=== PATIENT | female | born 1955 | race Caucasian/White ===

== ENCOUNTER 2017-05-21 14:20 | Observation (INO) | payer OTHER ==
--- NOTE | 2017-05-21 14:34 | CPEKG ---
Heart Rate: 98 RR Interval: 612 P-R Interval: 168 QRSD Interval: 88 QT Interval: 352 QTC Interval: 450 P [place]: 64 QRS [place]: 61 T Wave [place]: 26 EKG Severity - BORDERLINE ECG - EKG Impression: SINUS RHYTHM EKG Impression: BORDERLINE T ABNORMALITIES, ANTERIOR LEADS Electronically Signed By: Tino Arana 21-May-2017 22:31:32
--- NOTE | 2017-05-21 14:34 | CPEKG ---
Heart Rate: 98 RR Interval: 612 P-R Interval: 168 QRSD Interval: 88 QT Interval: 352 QTC Interval: 450 P [place]: 64 QRS [place]: 61 T Wave [place]: 26 EKG Severity - BORDERLINE ECG - EKG Impression: SINUS RHYTHM EKG Impression: BORDERLINE T ABNORMALITIES, ANTERIOR LEADS Electronically Signed By: Tino Arana 21-May-2017 22:31:32
[2017-05-21] MEDS ORDERED: ASPIRIN 81 MG CHEWABLE TAB PO ONE (14:44)
[2017-05-21 14:51] LABS: PLATELET COUNT 228 10^3/uL (150-400)
[2017-05-21] MEDS ORDERED: NITROGLYCERIN 0.4 MG BTL SL ONE (15:14)
[2017-05-21] MEDS ORDERED: NS 1,000 ML IV ONE (15:15)
[2017-05-21] MEDS ORDERED: NITROGLYCERIN 2% 1 GM PACKET TP ONE (15:49)
--- NOTE | 2017-05-21 15:53 | EDPHY ---
H & P Stated Complaint: c/o Lt chest pain Rad to neck since Sat Time Seen by Provider: 05/21/17 15:01 HPI/ROS: This patient lifted a heavy box of fabric on Sunday, 2 days prior to arrival and then developed some left-sided chest pain that she described as initially achy with partial improvement from Advil but last night, Sunday night she will significant increase in the severity of the pain up to a 10/10 for a brief period of time and then persistent steady ache since that time in the left chest radiating to the left lateral neck. She describes this pain as improving slightly when she lies down left side. She is uncertain if it worsens with exertion but she has not noticed any obvious correlation. She does notice is a pleuritic component that worsens with a deep breath. A current intensity is 6/ 10. She has not had this pain before. She reports that it "feels like a muscle tear ". She has not had this pain before. ROS: Constitutional: No fevers or chills. No fatigue. HEENT: No coryza or sore throat. No other complaints Pulmonary: No coughing. No dyspnea. Cardiovascular: She reports no heart palpitations. No lightheadedness. No leg swelling or pain GI: No nausea vomiting or abdominal pain. In the past she has had occasional GERD symptoms but nothing recently other than belching moderately. Integumentary: No skin rash Neuro: No complaints Musculoskeletal: No injuries that she can think of Complete review of symptoms is otherwise negative. Source: Patient Exam Limitations: No limitations - Personal History Current Tetanus Diphtheria and Acellular Pertussis (TDAP): Yes - Medical/Surgical History PMH: Otherwise healthy Family history of mother with coronary artery bypass in her 60s Other PMH: ta - Family History Significant Family History: Heart disease - Social History Smoking Status: Never smoked Alcohol Use: Other (She has a glass a wine most nights with dinner.) Drug Use: None - Physical Exam Exam: General Appearance: Alert, no distress. Eyes: Pupils equal and round no pallor or injection. ENT, Mouth: Mucous membranes moist. Respiratory: There are no retractions, lungs are clear to auscultation. Cardiovascular: Regular rate and rhythm. Gastrointestinal: Abdomen is soft and nontender, no masses, bowel sounds normal. Neurological: [ ] Skin: Warm and dry, no rashes. Musculoskeletal: Neck is supple nontender. Extremities are symmetrical, full range of motion. Psychiatric: Patient is oriented X 3, there is no agitation. DIFFERENTIAL DIAGNOSIS: After history and physical exam differential diagnosis was considered for [ ] Constitutional: Initial Vital Signs Temperature (C) 36.6 C 05/21/17 14:26 Heart Rate 95 05/21/17 14:26 Respiratory Rate 18 05/21/17 14:26 Blood Pressure 181/95 H 05/21/17 14:26 O2 Sat (%) 94 05/21/17 14:26 O2 Delivery Mode Room Air Allergies/Adverse Reactions: No Known Allergies Allergy (Unverified 05/21/17 14:26) Home Medications: Medication Instructions Recorded NK [No Known Home Meds] 05/21/17 Medical Decision Making - Diagnostics EKG Interpretation: EKG performed at 2:32 p.m. indication chest pain 12 lead EKG sinus rhythm at 98 Intervals: Normal throughout [place]: P of 64, QRS of 61, T of 26 ST segments are notable for [address] elevation isolated to V1 with [address] depression in lateral leads V4 through V6. Overall assessment sinus rhythm with T-wave abnormalities in anterolateral leads. No previous EKG for comparison. Imaging Results: Imaging Impressions Chest X-Ray 05/21/17 14:52 Impression: 1. Bronchitis/airways disease. 2. Linear scarring or atelectasis in the left lower lobe. 3. No definite pneumonia. Findings and recommendations discussed with Emergency Department physician, Dr. Tino Arana, at 1533 hours on May 21, 2017. Final report concurs with initial preliminary interpretation. Imaging: Discussed imaging studies w/ call center manager Radiologist ED Course/Re-evaluation: IV, monitor, aspirin, nasal cannula O2 for O2 sat on room air of 94% with increase in to the high 90s Patient initially declined supple nitroglycerin but then accepted nitropaste given chest pain with abnormal EKG. She had partial relief of her pain down to 1-2/10 discomfort EKGs repeated. I counseled her regarding her EKG abnormalities. Troponin is still pending at 3:50 p.m. troponin is negative. However given the patient's constellation of symptoms, EKG abnormalities and risk factor of age in Family history, she warrants admission for further workup. I spoke with Jenae Muse-hospitalist at [facility] who accepts patient for admission I also spoke with Jacoby Arana-cardiology in consult who agrees with plan for admission. Patient remained stable in the emergency department and had complete resolution of her chest pain with 0.5 inch nitropaste at the time of transfer by EMS to [facility] - Data Points Laboratory Results: Laboratory Results 05/21/17 14:40 05/21/17 14:40 05/21/17 05/21/17 05/21/17 14:40 14:40 14:40 WBC 5.88 10^3/uL 10^3/uL (3.80-9.50) RBC 4.70 10^6/uL 10^6/uL (4.18-5.33) Hgb 14.2 g/dL g/dL (12.6-16.3) Hct 42.5 % % (38.0-47.0) MCV 90.4 fL fL (81.5-99.8) MCH 30.2 pg pg (27.9-34.1) MCHC 33.4 g/dL g/dL (32.4-36.7) RDW 12.5 % % (11.5-15.2) Plt Count 228 10^3/uL 10^3/uL (150-400) MPV 9.6 fL fL (8.7-11.7) Neut % (Auto) 60.3 % % (39.3-74.2) Lymph % (Auto) 28.7 % % (15.0-45.0) [place] % (Auto) 9.5 % % (4.5-13.0) Eos % (Auto) 1.0 % % (0.6-7.6) Baso % (Auto) 0.3 % % (0.3-1.7) Nucleat RBC Rel Count 0.0 % % (0.0-0.2) Absolute Neuts (auto) 3.54 10^3/uL 10^3/uL (1.70-6.50) Absolute Lymphs (auto) 1.69 10^3/uL 10^3/uL (1.00-3.00) Absolute Monos (auto) 0.56 10^3/uL 10^3/uL (0.30-0.80) Absolute Eos (auto) 0.06 10^3/uL 10^3/uL (0.03-0.40) Absolute Basos (auto) 0.02 10^3/uL 10^3/uL (0.02-0.10) Absolute Nucleated RBC 0.00 10^3/uL 10^3/uL (0-0.01) Immature Gran % 0.2 % % (0.0-1.1) Immature Gran # 0.01 10^3/uL 10^3/uL (0.00-0.10) APTT 29.8 SEC SEC (23.0-38.0) Sodium 144 mEq/L mEq/L (134-144) Potassium 4.1 mEq/L mEq/L (3.5-5.2) Chloride 105 mEq/L mEq/L (97-110) Carbon Dioxide 27 mEq/l mEq/l (22-31) Anion Gap 12 mEq/L mEq/L (8-16) BUN 16 mg/dL mg/dL (7-23) Creatinine 0.9 mg/dL mg/dL (0.6-1.0) Estimated GFR > 60 Glucose 97 mg/dL mg/dL (70-100) Calcium 9.6 mg/dL mg/dL (8.5-10.4) Total Bilirubin 0.6 mg/dL mg/dL (0.1-1.4) AST 57 IU/L H IU/L (14-46) ALT 60 IU/L H IU/L (9-52) Alkaline Phosphatase 83 IU/L IU/L (38-126) Troponin I < 0.012 ng/mL ng/mL (0.000-0.034) Total Protein 7.3 g/dL g/dL (6.3-8.2) Albumin 4.3 g/dL g/dL (3.5-5.0) Medications Given: Ketorolac Tromethamine (Toradol) 30 mg IVP Q6HRS PRN PRN Reason: Pain, Inflammatory Stop: 05/26/17 19:28 Last Admin: 05/21/17 20:31 Dose: 30 mg Discontinued Medications Aspirin (Aspirin) 324 mg PO EDNOW ONE Stop: 05/21/17 14:45 Last Admin: 05/21/17 14:49 Dose: 324 mg Sodium Chloride (Ns) 1,000 mls @ 0 mls/hr IV ONCE ONE PRN Reason: Wide Open Stop: 05/21/17 15:16 Last Admin: 05/21/17 15:19 Dose: 1,000 mls Nitroglycerin (Nitrostat) 0.4 mg SL EDNOW ONE Stop: 05/21/17 15:15 Last Admin: 05/21/17 15:20 Dose: 0.4 mg Nitroglycerin (Nitro-Bid 2%) 0.5 inch TP EDNOW ONE Stop: 05/21/17 15:50 Last Admin: 05/21/17 15:58 Dose: 0.5 inch Departure - Departure Disposition: [facility]
[2017-05-21] MEDS ORDERED: NITROGLYCERIN 2% 1 GM PACKET ONE (15:56)
--- NOTE | 2017-05-21 16:05 | CPEKG ---
Heart Rate: 77 RR Interval: 779 P-R Interval: 172 QRSD Interval: 84 QT Interval: 368 QTC Interval: 417 P [place]: 60 QRS [place]: 45 T Wave [place]: 17 EKG Severity - BORDERLINE ECG - EKG Impression: SINUS RHYTHM EKG Impression: BORDERLINE T ABNORMALITIES, ANTERIOR LEADS Electronically Signed By: Tino Arana 21-May-2017 22:31:19
--- NOTE | 2017-05-21 16:05 | CPEKG ---
Heart Rate: 77 RR Interval: 779 P-R Interval: 172 QRSD Interval: 84 QT Interval: 368 QTC Interval: 417 P [place]: 60 QRS [place]: 45 T Wave [place]: 17 EKG Severity - BORDERLINE ECG - EKG Impression: SINUS RHYTHM EKG Impression: BORDERLINE T ABNORMALITIES, ANTERIOR LEADS Electronically Signed By: Tino Arana 21-May-2017 22:31:19
[2017-05-21] MEDS ORDERED: ONDANSETRON DISINTEGRATING 4 MG TAB PO PRN (19:27)
[2017-05-21] MEDS ORDERED: ACETAMINOPHEN 325 MG TAB PO PRN (19:27)
[2017-05-21] MEDS ORDERED: ONDANSETRON 4 MG/2 ML VIAL IVP PRN (19:27)
[2017-05-21] MEDS: KETOROLAC 30 MG/1 ML SDV IVP PRN (20:31)
--- NOTE | 2017-05-21 21:36 | GHP ---
[f rep st] HISTORY AND PHYSICAL DATE OF ADMISSION: 05/21/2017 CHIEF COMPLAINT: Chest pain. HISTORY OF PRESENT ILLNESS: This is a 61-year-old female with no past medical history. She awoke th is morning with left-sided chest pain. It was under her breast. It was quite severe. It was pleuri tic. There is some tenderness associated with it. There was not a significant shortness of breath. No diaphoresis, nausea, or vomiting. It was better with Aleve and with nitroglycerin given at the [facility]. Currently, patient is essentially chest pain free, although she feels like it is coming on again. REVIEW OF SYSTEMS: A 10-point review of systems was obtained and was negative. PAST MEDICAL HISTORY: None. MEDICATIONS: None. SOCIAL HISTORY: No smoking, alcohol. FAMILY HISTORY: Mother had coronary bypass surgery about the same age, although she was a smoker. G randfather also had coronary artery disease. PHYSICAL EXAMINATION: VITAL SIGNS: Afebrile, blood pressure is 115/58, heart rate 74, oxygen satura tion 99% on 1 L. GENERAL: Patient is well developed, no apparent distress. HEENT: Nonicteric scle pro. Extraocular movements intact. Moist mucous membranes. NECK: Supple. No thyromegaly. LUNGS: Good effort. Clear to auscultation bilaterally. CARDIOVASCULAR: Regular rate and rhythm. No mur murs, gallops. There is point tenderness on the left chest. ABDOMEN: Positive bowel sounds. Soft, nontender, nondistended. No hepatosplenomegaly. EXTREMITIES: No clubbing, cyanosis, or edema. SK IN: Without rash. Dry, intact. NEUROLOGIC: Alert and oriented x3. Moving all 4 extremities equal ly. PSYCHIATRIC: Normal mood and affect. LABORATORY DATA: CBC is normal. D-dimer is negative. Chemistry is normal, although AST and ALT are slightly elevated. Initial EKG showed some slight ST segment elevations anteriorly with some depression laterally. Ches t x-ray is negative. ASSESSMENT: This is a 61-year-old female presenting with atypical chest pain. PLAN: chest pain. The patient is endorsing pleuritic nature of it, as well as reproducibility. She does not have a lot of risk factors in terms of coronary disease. She does, however, have a slightl y abnormal EKG on admission on presentation to [facility], which has normalized. Will monitor overnight. W ill get a rule out with cardiac enzymes and get treadmill stress test in the morning. /[id number]/MODL
[2017-05-22 03:37] VITALS: O2SAT 96
[2017-05-22 07:53] VITALS: BP 103/60; PULSE 73; RESP 17; TEMP 98.7
[2017-05-22] MEDS ORDERED: ASPIRIN 325 MG TAB PO SCH (09:00)
[2017-05-22] MEDS: KETOROLAC 30 MG/1 ML SDV IVP PRN (09:26)
--- NOTE | 2017-05-22 15:25 | CPR ---
[f rep st] NONINVASIVE CARDIAC PROCEDURE REPORT DATE OF PROCEDURE: 05/22/2017 EXERCISE TREADMILL STRESS TEST REASON FOR TEST: 1. Left-sided lower chest discomfort. 2. Strong family history of coronary artery disease. RESTING EKG: Shows a regular sinus rhythm with T-wave inversion in V1, V2 consistent with right vent ricular conduction delay. Resting blood pressure 130/80, oxygen saturation 96%. EXERCISE PORTION: She was exercised according to the [place] protocol for a total of 6 minutes. Her bl ood pressure was 136/80, heart rate 126. She noted 2/10 left-sided chest discomfort. She exercised a total of [address] upsloping in the inferior anterior leads. Bloo d pressure 160/60, heart rate 150. No arrhythmias noted. RECOVERY: She spontaneously recovered bringing her blood pressure to 140/80, heart rate 98. The disc omfort subsided during recovery. She had no arrhythmias noted. She did have upsloping ST changes not significant for significant ischemia. As an outpatient it is recommended that she have a nuclear Karina scan stress test due to her family history and the unequivocal ST upsloping changes. At this time she currently is stable to return to her room /[id number]/MODL
--- NOTE | 2017-05-22 17:12 | ASDISCHSUM ---
Discharge Information Plan Status:Home with No Needs Medically Cleared to Leave:05/21/2017 Discharge Date:05/22/2017 11:31 AM CM D/C Disposition:Home, Routine, Self-Care ADT D/C Disposition:Home, Routine, Self-Care Projected Discharge Date:05/22/2017 12:00 AM Transportation at D/C:Family Discharge Delay Reason: Follow-Up Date:05/22/2017 12:00 AM Discharge Slot: Final Diagnosis:CP Placement Information Patient Contact Information Contact Name:DEION Relationship: Address:[address] [place] [address] Work Phone: City:[facility] Phone: [facility]/Zip Code:[place] [address] Email: Financial Information Financial Class:HMO and PPO Plans Primary Plan Desc:HMO [employer] Primary Plan Number:[id number] Secondary Plan Desc: Secondary Plan Number: Assessment Information [facility] CM Progress Note CM Note CM Note Notes: 61 year old female admitted for CP. Had a cardiac workup and CP resolved. Patient discharged home no needs. Date Signed: 05/22/2017 05:11 PM Electronically Signed By:Radha King LCSW Intervention Information
--- NOTE | 2017-05-22 17:12 | ASDISCHSUM ---
Discharge Information Plan Status:Home with No Needs Medically Cleared to Leave:05/21/2017 Discharge Date:05/22/2017 11:31 AM CM D/C Disposition:Home, Routine, Self-Care ADT D/C Disposition:Home, Routine, Self-Care Projected Discharge Date:05/22/2017 12:00 AM Transportation at D/C:Family Discharge Delay Reason: Follow-Up Date:05/22/2017 12:00 AM Discharge Slot: Final Diagnosis:CP Placement Information Patient Contact Information Contact Name:DEION Relationship: Address:[address] [place] [address] Work Phone: City:[facility] Phone: [facility]/Zip Code:[place] [address] Email: Financial Information Financial Class:HMO and PPO Plans Primary Plan Desc:HMO [employer] Primary Plan Number:[id number] Secondary Plan Desc: Secondary Plan Number: Assessment Information [facility] CM Progress Note CM Note CM Note Notes: 61 year old female admitted for CP. Had a cardiac workup and CP resolved. Patient discharged home no needs. Date Signed: 05/22/2017 05:11 PM Electronically Signed By:Radha King LCSW Intervention Information
--- NOTE | 2017-05-22 17:12 | ASDISCHSUM ---
Discharge Information Plan Status:Home with No Needs Medically Cleared to Leave:05/21/2017 Discharge Date:05/22/2017 11:31 AM CM D/C Disposition:Home, Routine, Self-Care ADT D/C Disposition:Home, Routine, Self-Care Projected Discharge Date:05/22/2017 12:00 AM Transportation at D/C:Family Discharge Delay Reason: Follow-Up Date:05/22/2017 12:00 AM Discharge Slot: Final Diagnosis:CP Placement Information Patient Contact Information Contact Name:DEION Relationship: Address:[address] [place] [address] Work Phone: City:[facility] Phone: [facility]/Zip Code:[place] [address] Email: Financial Information Financial Class:HMO and PPO Plans Primary Plan Desc:HMO [employer] Primary Plan Number:[id number] Secondary Plan Desc: Secondary Plan Number: Assessment Information [facility] CM Progress Note CM Note CM Note Notes: 61 year old female admitted for CP. Had a cardiac workup and CP resolved. Patient discharged home no needs. Date Signed: 05/22/2017 05:11 PM Electronically Signed By:Radha King LCSW Intervention Information
--- NOTE | 2017-05-22 19:40 | GDS ---
[f rep st] DISCHARGE SUMMARY DISCHARGE DIAGNOSIS: Chest pain, suspected noncardiac. HISTORY OF PRESENT ILLNESS: A 61-year-old female with no significant past medical history, who awoke with left-sided chest pain. For details of the patient's initial presentation, please see the history and physical dated 2016. CONSULTATIVE SERVICES: Cardiology. PROCEDURES: On 05/22/2017, the patient underwent a treadmill stress test which was negative for any acute ischemic findings. HOSPITAL COURSE: Chest pain. The patient ruled out overnight and was taken for treadmill stress testing. She had effective treadmill ruling out acute inducible ischemic changes. The patient has been instructed to follow in the outpatient setting with [facility] for additional nuclear stress testing. The patient will take aspirin daily until her evaluation in the outpatient setting. MEDICATIONS AT THE TIME OF TRANSFER: Please reference the med rec printed on . FOLLOWUP APPOINTMENTS: [facility] in the next 1-2 weeks for additional nuclear imaging. PENDING STUDIES: At the time of this dictation are none. /[id number]/MODL MTDD
--- NOTE | 2017-05-22 19:40 | GDS ---
[f rep st] DISCHARGE SUMMARY DISCHARGE DIAGNOSIS: Chest pain, suspected noncardiac. HISTORY OF PRESENT ILLNESS: A 61-year-old female with no significant past medical history, who awoke with left-sided chest pain. For details of the patient's initial presentation, please see the history and physical dated 2016. CONSULTATIVE SERVICES: Cardiology. PROCEDURES: On 05/22/2017, the patient underwent a treadmill stress test which was negative for any acute ischemic findings. HOSPITAL COURSE: Chest pain. The patient ruled out overnight and was taken for treadmill stress testing. She had effective treadmill ruling out acute inducible ischemic changes. The patient has been instructed to follow in the outpatient setting with [facility] for additional nuclear stress testing. The patient will take aspirin daily until her evaluation in the outpatient setting. MEDICATIONS AT THE TIME OF TRANSFER: Please reference the med rec printed on . FOLLOWUP APPOINTMENTS: [facility] in the next 1-2 weeks for additional nuclear imaging. PENDING STUDIES: At the time of this dictation are none. /[id number]/MODL MTDD
== END 2017-05-22 11:31 | disposition home or self-care (01) ==
LOC: CED 14:20 → CEDHOLD 16:32 → F2N 19:00
PROVIDERS: ADMIT Internal Medicine; ATTEND Hospitalist
DX: R07.9 Chest pain, unspecified (principal); Z82.49 Family history of ischemic heart disease and other diseases of the circulatory system
CPT/HCPCS: 71020; 93005; 93017; G0378; 80053-PO; 84484-PO; 85025-PO; 85378-PO; 85730-PO; J1885

== ENCOUNTER → 2017-06-20 | Outpatient (CLI) | payer OTHER | LOC: CIMAGING 14:18 | PROVIDERS: ATTEND Family Medicine | DX: Z12.31 Encounter for screening mammogram for malignant neoplasm of breast (principal) | CPT/HCPCS: G0202 ==